=== PATIENT | female | born 1965 | race African-American/Black ===

== ENCOUNTER 2023-11-27 03:49 | Day surgery (SDC) | payer OTHER ==
[2023-11-21 17:54] VITALS: BMI 29.0
[2023-11-27] MEDS ORDERED: LIDOCAINE HCL 1%, 10 MG/ML (20ML VIAL) ONE (08:13)
[2023-11-27] MEDS ORDERED: ISOSULFAN BLUE 50 MG/5 ML VIAL SQ ONE (08:13)
[2023-11-27] MEDS ORDERED: MIDAZOLAM HCL 2 MG/2 ML SINGLE DOSE VIAL ONE ×2 (11:26→11:40)
[2023-11-27] MEDS ORDERED: FENTANYL CITRATE/PF 50 MCG/ML VIAL ONE ×4 (11:26→13:57)
[2023-11-27] MEDS ORDERED: ONDANSETRON 4 MG/2 ML VIAL ONE ×2 (11:26→12:57)
[2023-11-27] MEDS ORDERED: SODIUM CHLORIDE 0.9% P/F 10 ML VIAL IJ ONE (11:26)
[2023-11-27] MEDS ORDERED: LIDOCAINE HCL/PF 2% SDV 5ML VIAL ONE ×2 (11:26→11:39)
[2023-11-27] MEDS ORDERED: DEXAMETHASONE SOD PHOSPHATE 4 MG/1 ML VIAL ONE ×2 (11:26→12:26)
[2023-11-27] MEDS ORDERED: ceFAZolin SODIUM 1 GM VIAL ONE ×2 (11:26→12:26)
[2023-11-27] MEDS ORDERED: ALBUTEROL SO4 HFA INHALER IH ONE (11:30)
[2023-11-27] MEDS ORDERED: PROPOFOL 20 ML ONE (11:40)
[2023-11-27] MEDS: ceFAZolin SODIUM 1 GM VIAL IVPB ONE (12:27)
[2023-11-27] MEDS: LIDOCAINE HCL 1%, 10 MG/ML (50 mL VIAL) INF ONE (12:46)
[2023-11-27] MEDS ORDERED: KETOROLAC TROMETHAMINE 30 MG/1 ML VIAL ONE (12:57)
[2023-11-27] MEDS ORDERED: PROMETHAZINE HCL 25 MG/1 ML VIAL IVPB PRN (13:38)
[2023-11-27] MEDS ORDERED: oxyCODONE HCL 5 MG TABLET PO PRN ×2 (13:38)
[2023-11-27] MEDS ORDERED: ONDANSETRON 4 MG/2 ML VIAL IVPUSH PRN (13:38)
[2023-11-27] MEDS ORDERED: LACTATED RINGERS SOLUTION 1,000 ML IV SCH (13:45)
[2023-11-27] MEDS: ACETAMINOPHEN 1000 MG/100 ML BAG IVPB ONE (14:04)
[2023-11-27] MEDS: ACETAMINOPHEN INJECTION 100 ML IVPB ONE (14:04)
[2023-11-27 15:33] VITALS: RESP 18
[2023-11-27 16:17] VITALS: BP 119/72; PULSE 70; TEMP 97.9
== END 2023-11-27 16:00 | disposition home or self-care (01) ==
LOC: JASU-SURG 03:49
PROVIDERS: ATTEND Surgery
PROC: 0HBT0ZZ Excision of Right Breast, Open Approach (ICD-10-PCS; principal; 2023-11-27 12:00)
DX: C50.911 Malignant neoplasm of unspecified site of right female breast (principal)
CPT/HCPCS: 78195-TC; 88307-TC; 88342-TC; 94760; A9541; J0131